=== PATIENT | female | born 1930 | race Caucasian/White ===

== ENCOUNTER 2018-10-03 14:32 | Inpatient (IN) | payer MEDICARE, OTHER ==
[~2018-10-03] VITALS: Ht 121.9 cm; Wt 46.0 kg
[~2018-10-03 14:32] MED LIST: ACET325T33 PO; HYDR-4011 PO
[2018-10-03 14:34] VITALS: Ht 121.9 cm; Wt 46.0 kg
[2018-10-03] MEDS ORDERED: IOHEXOL 100 ML ONE (16:32)
[2018-10-03] MEDS ORDERED: SOD CHLORIDE 0.9% 100 ML ONE (16:32)
[2018-10-03] MEDS ORDERED: IOHEXOL 350MG/ML 50 ML BTL ONE (16:35)
[2018-10-03] MEDS ORDERED: ONDANSETRON 4 MG INJ IV PRN ×2 (20:30→22:30)
[2018-10-03] MEDS ORDERED: ACETAMINOPHEN 325 MG TAB PO PRN (20:30)
--- NOTE | 2018-10-03 21:02 | ERD ---
ER Documentation Chief Complaint Chief Complaint ANGIOGRAM ON WEDNESDAY WITH ABDOMINAL BRUISING TODAY HPI This is an 88-year-old female with a past medical history of significant peripheral vascular disease with a necrotic ulcer of the right lower extremity secondary to occlusion status post revascularization with angioplasty recently who is now presenting for significant bruising to the abdominal wall and anterior upper thighs. According to the patient's vascular surgeon, Dr. Butcher, the patient was given heparin during the procedure. The patient does not endorse any significant tenderness, but the bruising has been expanding over the last several days, which was concerning to her and the family. She does not endorse any alleviating or exacerbating factors. The patient denies feeling sick recently. The patient denies fever or chills. The patient has had no headache or vision changes. The patient does not endorse neck or back pain. The patient denies lightheadedness or dizziness. The patient has had no chest pain or trouble breathing. The patient denies nausea or vomiting. The patient denies abdominal pain. The patient denies changes to bowel movements or urination. The patient has had no focal deficits. The patient has had no weakness or numbness or tingling to the face or extremities. ROS All systems reviewed and are negative except as per history of present illness. Medications Home Meds No Active Prescriptions or Reported Meds Allergies Allergies: Coded Allergies: No Known Allergy (Unverified , 10/03/18) PMhx/Soc History of Surgery: Yes (angiogram 09/2018) Anesthesia Reaction: No Hx Neurological Disorder: No Hx Respiratory Disorders: No Hx Cardiac Disorders: Yes (HTN) Hx Psychiatric Problems: No Hx Miscellaneous Medical Probl: Yes (RLE clot w compromised circulation; wound present) Hx Alcohol Use: No Hx Substance Use: No Hx Tobacco Use: No Smoking Status: Never smoker FmHx Family History: No diabetes Physical Exam Vitals Vital Signs Date Temp Pulse Resp B/P (MAP) Pulse Ox O2 O2 Flow FiO2 Time Delivery Rate 10/03/18 75 24 109/57 100 Room Air 18:28 (74) 10/03/18 99.2 81 18 118/58 94 14:34 (78) Physical Exam Const: No apparent distress, well-developed, well-nourished Head: Normocephalic, Atraumatic Eyes: Normal Conjunctiva. Extraocular movements intact. Pupils equal, round and reactive to light ENT: Normal External Ears, Nose and Mouth. Neck: Full range of motion. No meningismus. Resp: Clear to auscultation bilaterally, No wheezes, rales or rhonchi Cardio: Regular rate and rhythm. No murmurs, rubs or gallops Abd: Soft, non distended. Mild tenderness to the abdominal wall. Normal bowel sounds Skin: Significant bruising to the anterior abdominal wall extending down into the anterior thighs. Back: No midline tenderness. No CVA tenderness Ext: No cyanosis, or edema Neur: Awake and alert, oriented 4. Cranial nerves intact. No facial droop. Normal strength, sensation and coordination. Psych: Normal Mood and Affect Result Diagram: 10/03/18 1518 10/03/18 1518 Results 24 hrs Laboratory Tests Test 10/03/18 15:18 10/03/18 15:34 White Blood Count 6.8 10^3/ul Red Blood Count 2.83 10^6/ul Hemoglobin 7.7 g/dl Hematocrit 25.2 % Mean Corpuscular Volume 89.0 fl Mean Corpuscular Hemoglobin 27.2 pg Mean Corpuscular Hemoglobin Concent 30.6 g/dl Red Cell Distribution Width 15.4 % Platelet Count 308 10^3/UL Mean Platelet Volume 9.4 fl Immature Granulocytes % 0.600 % Neutrophils % 58.3 % Lymphocytes % 31.0 % Monocytes % 8.0 % Eosinophils % 1.5 % Basophils % 0.6 % Nucleated Red Blood Cells % 0.0 /100WBC Immature Granulocytes # 0.040 10^3/ul Neutrophils # 4.0 10^3/ul Lymphocytes # 2.1 10^3/ul Monocytes # 0.5 10^3/ul Eosinophils # 0.1 10^3/ul Basophils # 0.0 10^3/ul Nucleated Red Blood Cells # 0.0 10^3/ul Prothrombin Time 12.4 Sec Prothrombin Time Ratio 1.0 INR International Normalized Ratio 0.91 Activated Partial Thromboplast Time 24.4 Sec Sodium Level 140 mmol/L Potassium Level 4.1 mmol/L Chloride Level 104 mmol/L Carbon Dioxide Level 30 mmol/L Anion Gap 6 Blood Urea Nitrogen 17 mg/dl Creatinine 0.72 mg/dl Est Glomerular Filtrat Rate mL/min mL/min Glucose Level 105 mg/dl Calcium Level 9.2 mg/dl Total Bilirubin 0.5 mg/dl Direct Bilirubin 0.00 mg/dl Indirect Bilirubin 0.5 mg/dl Aspartate Amino Transf (AST/SGOT) 24 IU/L Alanine Aminotransferase (ALT/SGPT) 14 IU/L Alkaline Phosphatase 51 IU/L Total Protein 6.8 g/dl Albumin 3.4 g/dl Globulin 3.40 g/dl Albumin/Globulin Ratio 1.00 Bedside Urine pH (LAB) 7.0 Bedside Urine Protein (LAB) Negative Bedside Urine Glucose (UA) Negative Bedside Urine Ketones (LAB) Negative Bedside Urine Blood Negative Bedside Urine Nitrite (LAB) Negative Bedside Urine Leukocyte Esterase (L Negative Current Medications Medications Dose Sig/Tammy Start Time Status Last (Trade) Ordered Route PRN Stop Time Admin Dose Reason Admin Sodium 100 ml @ ud STK-MED 10/03/18 DC Chloride ONCE .ROUTE 16:32 10/03/18 16:33 Iohexol 100 ml @ ud STK-MED 10/03/18 DC ONCE .ROUTE 16:32 10/03/18 16:33 Iohexol 50 ml STK-MED 10/03/18 DC (Omnipaque ONCE .ROUTE 16:35 350mg/ ml) 10/03/18 16:36 Procedures/MDM MDM The patient's presentation warrants further investigation. Previous medical records, if available, were reviewed. LABS The patient's laboratory testing was obtained and reviewed. No emergent treatment was required unless described below. CBC: Normocytic anemia requiring reassessment. Emergent transfusion not req uired, but type and screen sent off. No E/o systemic infection or thrombocytopenia Chemistry: No E/o severe acidosis or alkalosis or renal failure or liver disease or diabetic ketoacidosis PT/INR: No E/o significant coagulopathy Urine: No E/o acute infection or hematuria EKG EKG read by me: Rate/Rhythm: Regular rate and rhythm at a rate of 81 bpm Intervals: Normal [place]: Left shifted Impression: Diffuse T wave flattening without evidence of acute ischemia or arrhythmia IMAGING Imaging and Radiology interpretation reviewed. CTA abdomen pelvis with runoff FINDINGS: AORTA AND BRANCHES: Abdominal aorta: Atherosclerosis. Negative for aneurysm. Negative for significant narrowing. Celiac [place]: Patent. No significant narrowing. Conventional hepatic arterial anatomy. There is vascular calcification of the splenic artery. SMA: Patent. No significant narrowing. There is scattered calcified atherosclerotic plaque with mild stenosis. RANDELL: Patent. No significant narrowing. Renal arteries: Single right and single left renal arteries. Patent with no significant narrowing. There is mild atherosclerotic plaque at the origin of the right renal artery without significant narrowing. ILIAC ARTERIES AND LOWER EXTREMITIES: There is vascular calcification and tortuosity of bilateral common, external and iliac arteries. Right iliac arteries: Right common and external iliac arteries: Patent. No significant narrowing. Right internal iliac artery: Patent without aneurysm. Left iliac arteries: Left common and external iliac arteries: Patent. No significant narrowing. Left internal iliac artery: Patent without aneurysm. Right lower extremity: There is diffuse vascular calcification of the major arteries of the right lower extremity and also of the calf arteries. Distal calf, ankle and foot are excluded from the field of view. Right common femoral artery: Patent. No significant narrowing. Right profunda femoris artery: Patent. No significant narrowing. Right superficial femoral artery: Patent. No significant narrowing. There is a small hematoma along the anterior wall of the proximal superficial femoral artery measuring 0.7 cm without active contrast extravasation and without a pseudoaneurysm (4/569). There is mild stenosis of the distal SFA in the adductor canal due to atherosclerosis. Right popliteal artery: Patent. No significant narrowing. Right anterior tibial artery: There is focal severe stenosis in the proximal anterior tibial artery shortly beyond its origin versus a short segment occlusion with reconstitution of flow distally. There are in tandem moderate and severe stenoses of the anterior tibial artery in the midcalf. Right tibioperoneal trunk: Patent. No significant narrowing. Right posterior tibial artery: Occluded. Right peroneal artery: Patent. No significant narrowing to the level of the mid calf. Left lower extremity: There is diffuse vascular calcification of the major arteries of the left lower extremity and also of the calf arteries. Distal calf, ankle and foot are excluded from the field of view. Left common femoral artery: Patent. No significant narrowing. There is a small hematoma along the anterior wall of the common femoral artery that measures 0.7 cm without pseudoaneurysm and without active contrast extravasation (4/553).. Left profunda femoris artery: Patent. No significant narrowing. Left superficial femoral artery: Patent. No significant narrowing. Left popliteal artery: Patent. No significant narrowing. Left anterior tibial artery: Patent with atherosclerosis with severe in tandem stenoses. Left tibioperoneal trunk: Patent with atherosclerosis with severe in tandem stenoses. Left posterior tibial artery: Patent with atherosclerosis with mild in tandem stenoses. Left peroneal artery: Patent with atherosclerosis with severe in tandem stenoses. LUNG BASES, ABDOMEN AND PELVIS: Evaluation of solid visceral organs and veins is limited on arterial phase imaging of the abdomen and pelvis. Lung Bases: Multichamber cardiomegaly. Liver: No significant abnormality. Gallbladder: 1.8 cm gallstone layers dependently in the gallbladder. Gallbladder is moderately distended. Negative for significant gallbladder wall thickening. Evaluation is limited due to motion artifact. Biliary tree: No intrahepatic or extrahepatic biliary duct dilatation. Spleen: No significant abnormality. Pancreas: No significant abnormality. Adrenal glands: No significant abnormality. Kidneys and ureters: Right kidney is small with multifocal parenchymal scarring. Left kidney is normal size. There are bilateral renal parenchymal cysts. Negative for hydronephrosis. Vasculature: Patency of IVC and iliac veins cannot be evaluated due to the timing of contrast bolus. Lymph nodes: No lymphadenopathy. Gastrointestinal tract: Larry colonic diverticulosis is severe in the sigmoid colon without diverticulitis. Bowel loops are decompressed and otherwise appear normal. Appendix: Normal. Bladder: No significant abnormality. Pelvic organs: Uterus and adnexa are unremarkable for age. Retroperitoneum: No obvious abnormality. Peritoneal cavity: Small volume low attenuation free pelvic fluid. Abdominal wall: There is a 3.2 x 12.5 cm hematoma in the left lower quadrant abdominal wall that involves the subcutaneous fat and the external oblique muscle that contains a hematocrit level. Negative for active contrast extr avasation. The left inferior epigastric and circumflex iliac arteries are patent. There is a fat-containing right lumbar hernia between the right quadratus lumborum and oblique musculature that measures 4.3 x 6.5 cm (4/233). There is a smaller fat containing left lumbar hernia that measures 2.6 cm (4/262). There is a small fat containing umbilical hernia. BONES AND NON-VASCULAR LOWER EXTREMITY: Right lower extremity: There is a defect in the subcutaneous fat over the medial aspect of the mid tibia. There are also varicose veins in the right lower extremity. Patency of the veins cannot be evaluated due to the phase of contrast injection. There is a suspected old healed fracture deformity of the right femoral neck and there is moderate osteoarthritis of the right hip. There is osteoarthritis of the knee. Left lower extremity soft tissues: Unremarkable where visualized. The lateral and posterior soft tissues are excluded from the field of view. There is osteoarthritis of the knee. Imaged spine and pelvis: Osteopenia. There is chronic height loss of several vertebra. There are mild degenerative changes in the spine. IMPRESSION: 1. 3.2 x 12.5 cm hematoma in the left lower quadrant abdominal wall without active contrast extravasation. 2. Small perivascular hematomas overlying the proximal right superficial femoral artery and the left common femoral artery without active contrast extravasation and without pseudoaneurysm are likely from recent vascular access. Negative for luminal narrowing. 3. Extensive atherosclerosis of the aorta, branch vessels and lower extremity arteries including the calf arteries. Aorta and branch vessels are patent without significant narrowing. Negative for aneurysm. 4. Right lower extremity: Negative for significant stenosis of the major arter ies of the right lower extremity from the common iliac artery to the popliteal artery. The dominant runoff vessel to the mid calf is the peroneal artery. Distal calf, ankle and foot are excluded from the field of view. 5. Left lower extremity: Negative for significant stenosis of the major arteries of the left lower extremity from the common iliac artery to the popliteal artery. The dominant runoff vessel to the mid calf is the posterior tibial artery. Distal calf, ankle and foot are excluded from the field of view. 6. Small scarred right kidney. Left kidney is normal size. Negative for hydro nephrosis. 7. Cholelithiasis. Gallbladder is moderately distended without definite evidence of acute cholecystitis. Evaluation is limited due to motion artifact. 8. Generalized edema with body wall edema and small volume low attenuation free pelvic fluid. 9. Right greater than left bilateral fat containing lumbar hernias and fat containing umbilical hernia. 10. Soft tissue ulcer in the right lower extremity over the mid tibia without evidence of osteomyelitis where imaged. There are adjacent varicose veins and the patency of the veins cannot be evaluated due to the phase of contrast injection. Electronically viewed and signed by Nayeli Geronimo Physician on 10/03/2018 19:00 TREATMENT/DISPOSITION The patient presents for significant abdominal wall and thigh bruising, concerning for a postoperative bleed since her vascular surgery and angioplasty. The patient was given heparin at the time, which could have caused the bleeding. The CT scan was completed that does not reveal any active extravasation, which is reassuring. The patient does not have evidence of symptomatic anemia at this time. However, the patient's hemoglobin is quite low at 7.7. Given the patient's recent bleeding, I do feel that she requires admission for reassessment of her anemia serially. I did speak with the patient's vascular surgeon who referred me to our on-call vascular surgeon, Dr. Chicas. I spoke with Dr. Jairo Serrano who is happy to be consulted on the case and will evaluate the patient in the hospital. ADMISSION At this time, I feel that the patient requires admission for further evaluation and management. The patient will be admitted to panel in accordance with the patient's insurance. The patient was accepted by Dr. Lemos at 7:15 PM on October 03, 2018. Dr. Jairo Serrano, the on-call vascular surgeon, was consulted on the case and will evaluate the patient in the hospital. DISCLAIMER Inadvertent spelling and grammatical errors are likely due to EHR/dictation software use and do not reflect on the overall quality of patient care. Note that the electronic time recorded on this note does not necessarily reflect the actual time of the patient encounter. Departure Diagnosis: Primary Impression: Normocytic anemia due to blood loss Additional Impressions: Postprocedural hematoma of abdominal wall Postoperative complication Surgical complication system/body Area: circulatory system Surgical complication type: hematoma Procedure type: other circulatory Qualified Codes: I97.638 - Postprocedural hematoma of a circulatory system organ or structure following other circulatory system procedure History of vascular surgery History of angioplasty of peripheral vessel Condition: DC [place] MD Oct 03, 2018 21:01
[2018-10-03 22:00] VITALS: BP 117/88; PULSE 18; RESP 20
[2018-10-03] MEDS ORDERED: NACL 0.9% 3 ML SYG IV SCH (22:30)
[2018-10-03] MEDS ORDERED: ALBUTEROL/IPRATROPIUM (NEB) 3 ML AMP HHN PRN (22:30)
[2018-10-03] MEDS: DEXTROSE 5%-0.45% NACL 1,000 ML IV SCH (23:02)
[2018-10-04 00:13] VITALS: BP 133/97; PULSE 80; RESP 18
[2018-10-04] MEDS: morphine 2 MG INJ IV PRN ×3 (00:23→21:36)
[2018-10-04 04:43] VITALS: BP 128/71; PULSE 78; RESP 20
[2018-10-04] MEDS: PANTOPRAZOLE 40 MG INJ IV SCH (06:13)
--- NOTE | 2018-10-04 07:17 | HP ---
Date/Time of Note Date/Time of Note DATE: 10/04/18 TIME: 07:11 Assessment/Plan VTE Prophylaxis SCD applied (from Nsg): Yes Pharmacological prophylaxis: NA/contraindicated Pharm contraindication: bleeding Lines/Catheters IV Catheter Type (from Nrsg): Peripheral IV Assessment/Plan Assessment/Plan 1. Abdominal wall hematoma: Patient status post angioplasty with revascularization recently. She was also given heparin. -Monitor closely -Avoid antiplatelets and obviously blood thinners -Transfuse PRBCs based on repeat H&H level -May repeat CT prior to discharge 2. Anemia: Secondary to blood loss -See #1 3. Right lower extremity ulcer -Status post revascularization recently. See #1 -Wound care consult -Antibiotic 4. Hypertension: BP within acceptable range Result Diagram: 10/04/185710/04/188 Results 24hrs Laboratory Tests Test 10/03/18 15:18 10/03/18 15:34 10/04/18 00:58 10/04/18 05:31 White Blood Count 6.8 6.5 Red Blood Count 2.83 L 2.61 L Hemoglobin 7.7 L 7.2 L Hematocrit 25.2 L 23.3 L Mean Corpuscular 89.0 89.3 Volume Mean Corpuscular 27.2 L 27.6 L Hemoglobin Mean Corpuscular 30.6 L 30.9 L Hemoglobin Concent Red Cell 15.4 H 15.5 H Distribution Width Platelet Count 308 282 Mean Platelet Volume 9.4 9.6 Immature 0.600 H 0.600 H Granulocytes % Neutrophils % 58.3 56.0 Lymphocytes % 31.0 32.7 Monocytes % 8.0 8.6 Eosinophils % 1.5 1.5 Basophils % 0.6 0.6 Nucleated Red Blood 0.0 0.0 Cells % Immature 0.040 H 0.040 H Granulocytes # Neutrophils # 4.0 3.7 Lymphocytes # 2.1 2.1 Monocytes # 0.5 0.6 Eosinophils # 0.1 0.1 Basophils # 0.0 0.0 Nucleated Red Blood 0.0 0.0 Cells # Prothrombin Time 12.4 Prothrombin Time 1.0 Ratio INR International 0.91 Normalized Ratio Activated 24.4 Partial Thromboplast Time Sodium Level 140 139 Potassium Level 4.1 4.1 Chloride Level 104 104 Carbon Dioxide Level 30 28 Anion Gap 6 7 Blood Urea Nitrogen 17 15 Creatinine 0.72 0.65 Est Glomerular Filtrat Rate mL/min Glucose Level 105 131 Calcium Level 9.2 8.9 Total Bilirubin 0.5 0.6 Direct Bilirubin 0.00 0.00 Indirect Bilirubin 0.5 0.6 Aspartate Amino 24 22 Transf (AST/SGOT) Alanine 14 16 Aminotransferase (AL T/SGPT) Alkaline Phosphatase 51 44 Total Protein 6.8 6.1 Albumin 3.4 3.1 L Globulin 3.40 H 3.00 Albumin/Globulin 1.00 1.03 Ratio Bedside Urine pH 7.0 (LAB) Bedside Urine Negative Protein (LAB) Bedside Urine Negative Glucose (UA) Bedside Urine Negative Ketones (LAB) Bedside Urine Blood Negative Bedside Urine Negative Nitrite (LAB) Bedside Urine Negative Leukocyte Esterase (L Magnesium Level 2.0 1.9 HPI/ROS Admit Date/Time Admit Date/Time Oct 03, 2018 at 20:17 Hx of Present Illness Patient is an 88-year-old female with a history of hypertension, PVD, right lower extremity ulcer who presented to ER complaining of abdominal ecchymosis. Patient recently underwent angioplasty with revascularization. According to the daughter who was at the bedside, for the past 3 days the ecchymosis has been progressively getting worse. No abdominal pain. When presented to the ER, vitals were stable. Hemoglobin however was found to be 7.7. CT abdomen/pelvis in the ER shows the following 1. 3.2 x 12.5 cm hematoma in the left lower quadrant abdominal wall without active contrast extravasation. 2. Small perivascular hematomas overlying the proximal right superficial femoral artery and the left common femoral artery without active contrast extravasation and without pseudoaneurysm are likely from recent vascular access. Negative for luminal narrowing. 3. Extensive atherosclerosis of the aorta, branch vessels and lower extremity arteries including the calf arteries. Aorta and branch vessels are patent without significant narrowing. Negative for aneurysm. 4. Right lower extremity: Negative for significant stenosis of the major arteries of the right lower extremity from the common iliac artery to the popliteal artery. The dominant runoff vessel to the mid calf is the peroneal artery. Distal calf, ankle and foot are excluded from the field of view. 5. Left lower extremity: Negative for significant stenosis of the major arteries of the left lower extremity from the common iliac artery to the popliteal artery. The dominant runoff vessel to the mid calf is the posterior tibial artery. Distal calf, ankle and foot are excluded from the field of view. 6. Small scarred right kidney. Left kidney is normal size. Negative for hydronephrosis. 7. Cholelithiasis. Gallbladder is moderately distended without definite evidence of acute cholecystitis. Evaluation is limited due to motion artifact. 8. Generalized edema with body wall edema and small volume low attenuation free pelvic fluid. 9. Right greater than left bilateral fat containing lumbar hernias and fat containing umbilical hernia. 10. Soft tissue ulcer in the right lower extremity over the mid tibia without evidence of osteomyelitis where imaged. There are adjacent varicose veins and the patency of the veins cannot be evaluated due to the phase of contrast injection. PMH/Family/Social Past Medical History Medical History: other (see hpi) Medications Current Medications Acetaminophen (Tylenol Tab) 650 mg ER BRIDGE PRN PO .MILD PAIN 1-3 OR TEMP; Start 10/03/18 at 20:30; Stop 10/04/18 at 20:29 Dextrose/Sodium Chloride 1,000 ml @ 75 mls/hr [id number] IV Last administered on 10/03/18at 23:02; Admin Dose 75 MLS/HR; Start 10/03/18 at 22:05 IV Flush (NS 3 ml) 3 ml PER PROTOCOL IV ; Start 10/03/18 at 22:30 Ondansetron HCl (Zofran Inj) 4 mg Q6H PRN IV NAUSEA/VOMITING; Start 10/03/18 at 22:30 Morphine Sulfate (morphine) 2 mg Q4H PRN IV .PAIN 7-10 Last administered on 10/04/18at 00:23; Admin Dose 2 MG; Start 10/03/18 at 22:30 Pantoprazole (Protonix Iv) 40 mg DAILY@06 IV Last administered on 10/04/18at 06:13; Admin Dose 40 MG; Start 10/04/18 at 06:00 Albuterol/ Ipratropium (Duoneb) 3 ml Q2H RESP THERAPY PRN HHN SHORTNESS OF BREATH; Start 10/03/18 at 22:30 Coded Allergies: No Known Allergy (Unverified , 10/03/18) Past Surgical History Past Surgical Hx: other (see hpi) Family History Significant Family History: no pertinent family hx Social History Alcohol Use: other Smoking Status: Unknown if ever smoked Drug Use: other Exam/Review of Systems Vital Signs Vitals Vital Signs Date Temp Pulse Resp B/P (MAP) Pulse Ox O2 O2 Flow FiO2 Time Delivery Rate 10/04/18 98.1 78 20 128/71 100 04:43 (90) 10/03/18 Room Air 21:14 Intake and Output 10/03/18 10/03/18 10/04/18 1515:00 23:00 07:00 IntakeIntake Total 120 ml BalanceBalance 120 ml Exam Exam Constitutional: no acute distress Head: normocephalic, atraumatic Eyes: EOMI, PERRL Respiratory: clear to auscultation, normal air movement Cardiovascular: no skipped beat Gastrointestinal: soft, non-tender Extremities: edema MIKE RAZO MD Oct 04, 2018 07:17
[2018-10-04 07:50] VITALS: BP 130/63; PULSE 70; RESP 18
[2018-10-04] MEDS ORDERED: SOD CHLORIDE 0.9% 250 ML IV* ONE (10:46)
[2018-10-04] MEDS: TRIMETHOPRIM/SULFAMETHOX (DS) TAB PO SCH ×2 (10:55→20:32)
[2018-10-04] MEDS: DEXTROSE 5%-0.45% NACL 1,000 ML IV SCH (10:57)
--- NOTE | 2018-10-04 10:59 | PN ---
Date/Time of Note Date/Time of Note DATE: 10/04/18 TIME: 10:54 Assessment/Plan VTE Prophylaxis Risk score (from Ns)>0 risk: 5 SCD applied (from Ns): Yes Pharmacological prophylaxis: NA/contraindicated Pharm contraindication: bleeding Lines/Catheters IV [facility]ter [facility] (from [facility]): Peripheral IV Assessment/Plan Hospital Course S: Patient denies any upper or lower GI bleeding. Denies any significant abdominal pain. Waiting to be seen by vascular surgery team presently. O: VS- see below PE: Gen: Alert, sitting up in bed, daughter at bedside Head: Normocephalic, Atraumatic Eyes: Normal Conjunctiva. Extraocular movements intact. Pupils equal, round and reactive to light ENT: Normal External Ears, Nose and Mouth. Neck: Supple Resp: Clear to auscultation bilaterally, No wheezes, rales or rhonchi Cardio: Regular rate and rhythm. No murmurs, rubs or gallops Abd: Soft, non distended. Mild tenderness to the abdominal wall. Normal bowel sounds Skin: Significant bruising to the anterior abdominal wall extending down into the anterior thighs. Ext: No bilateral lower extremity edema Neuro: No focal deficits Assessment/Plan: 88-year-old female with a history of hypertension, PVD, right lower extremity ulcer who recently underwent angioplasty with revascularization who now presents to ER complaining of abdominal ecchymosis. 1. Abdominal wall hematoma: Patient status post angioplasty with revascularization recently, and looks like a few days ago September 30, 2018 at [facility]. Apparently at that time she was also given heparin. -Monitor closely for now -Avoid antiplatelets and obviously blood thinners -Given the hemoglobin of 7.2 today, will order for unit PRBC transfusion and follow-up recommendations from vascular surgeon who has been consulted -May also need to repeat CT prior to discharge 2. Anemia: Secondary to blood loss -See #1 3. Right lower extremity ulcer -Status post revascularization recently. See #1 -Wound care consult -follow-up the recommendations -For now continue antibiotic 4. Hypertension: BP within acceptable range -Monitor Result Diagram: 10/04/18 0058 10/04/18 0058 Results 24hrs Laboratory Tests Test 10/03/18 15:18 10/03/18 15:34 10/04/18 00:58 10/04/18 05:31 White Blood Count 6.8 6.5 Red Blood Count 2.83 L 2.61 L Hemoglobin 7.7 L 7.2 L Hematocrit 25.2 L 23.3 L Mean Corpuscular 89.0 89.3 Volume Mean Corpuscular 27.2 L 27.6 L Hemoglobin Mean Corpuscular 30.6 L 30.9 L Hemoglobin Concent Red Cell 15.4 H 15.5 H Distribution Width Platelet Count 308 282 Mean Platelet Volume 9.4 9.6 Immature 0.600 H 0.600 H Granulocytes % Neutrophils % 58.3 56.0 Lymphocytes % 31.0 32.7 Monocytes % 8.0 8.6 Eosinophils % 1.5 1.5 Basophils % 0.6 0.6 Nucleated Red Blood 0.0 0.0 Cells % Immature 0.040 H 0.040 H Granulocytes # Neutrophils # 4.0 3.7 Lymphocytes # 2.1 2.1 Monocytes # 0.5 0.6 Eosinophils # 0.1 0.1 Basophils # 0.0 0.0 Nucleated Red Blood 0.0 0.0 Cells # Prothrombin Time 12.4 Prothrombin Time 1.0 Ratio INR International 0.91 Normalized Ratio Activated 24.4 Partial Thromboplast Time Sodium Level 140 139 Potassium Level 4.1 4.1 Chloride Level 104 104 Carbon Dioxide Level 30 28 Anion Gap 6 7 Blood Urea Nitrogen 17 15 Creatinine 0.72 0.65 Est Glomerular Filtrat Rate mL/min Glucose Level 105 131 Calcium Level 9.2 8.9 Total Bilirubin 0.5 0.6 Direct Bilirubin 0.00 0.00 Indirect Bilirubin 0.5 0.6 Aspartate Amino 24 22 Transf (AST/SGOT) Alanine 14 16 Aminotransferase (AL T/SGPT) Alkaline Phosphatase 51 44 Total Protein 6.8 6.1 Albumin 3.4 3.1 L Globulin 3.40 H 3.00 Albumin/Globulin 1.00 1.03 Ratio Bedside Urine pH 7.0 (LAB) Bedside Urine Negative Protein (LAB) Bedside Urine Negative Glucose (UA) Bedside Urine Negative Ketones (LAB) Bedside Urine Blood Negative Bedside Urine Negative Nitrite (LAB) Bedside Urine Negative Leukocyte Esterase (L Magnesium Level 2.0 1.9 Exam/Review of Systems Exam Vitals Vital Signs Date Temp Pulse Resp B/P (MAP) Pulse Ox O2 O2 Flow FiO2 Time Delivery Rate 10/04/18 98.2 70 18 130/63 96 07:50 (85) 10/03/18 Room Air 21:14 Intake and Output 10/03/18 10/03/18 10/04/18 1515:00 23:00 07:00 IntakeIntake Total 120 ml 600 ml BalanceBalance 120 ml 600 ml Results Results 24hrs Laboratory Tests Test 10/03/18 15:18 10/03/18 15:34 10/04/18 00:58 10/04/18 05:31 White Blood Count 6.8 6.5 Red Blood Count 2.83 L 2.61 L Hemoglobin 7.7 L 7.2 L Hematocrit 25.2 L 23.3 L Mean Corpuscular 89.0 89.3 Volume Mean Corpuscular 27.2 L 27.6 L Hemoglobin Mean Corpuscular 30.6 L 30.9 L Hemoglobin Concent Red Cell 15.4 H 15.5 H Distribution Width Platelet Count 308 282 Mean Platelet Volume 9.4 9.6 Immature 0.600 H 0.600 H Granulocytes % Neutrophils % 58.3 56.0 Lymphocytes % 31.0 32.7 Monocytes % 8.0 8.6 Eosinophils % 1.5 1.5 Basophils % 0.6 0.6 Nucleated Red Blood 0.0 0.0 Cells % Immature 0.040 H 0.040 H Granulocytes # Neutrophils # 4.0 3.7 Lymphocytes # 2.1 2.1 Monocytes # 0.5 0.6 Eosinophils # 0.1 0.1 Basophils # 0.0 0.0 Nucleated Red Blood 0.0 0.0 Cells # Prothrombin Time 12.4 Prothrombin Time 1.0 Ratio INR International 0.91 Normalized Ratio Activated 24.4 Partial Thromboplast Time Sodium Level 140 139 Potassium Level 4.1 4.1 Chloride Level 104 104 Carbon Dioxide Level 30 28 Anion Gap 6 7 Blood Urea Nitrogen 17 15 Creatinine 0.72 0.65 Est Glomerular Filtrat Rate mL/min Glucose Level 105 131 Calcium Level 9.2 8.9 Total Bilirubin 0.5 0.6 Direct Bilirubin 0.00 0.00 Indirect Bilirubin 0.5 0.6 Aspartate Amino 24 22 Transf (AST/SGOT) Alanine 14 16 Aminotransferase (AL T/SGPT) Alkaline Phosphatase 51 44 Total Protein 6.8 6.1 Albumin 3.4 3.1 L Globulin 3.40 H 3.00 Albumin/Globulin 1.00 1.03 Ratio Bedside Urine pH 7.0 (LAB) Bedside Urine Negative Protein (LAB) Bedside Urine Negative Glucose (UA) Bedside Urine Negative Ketones (LAB) Bedside Urine Blood Negative Bedside Urine Negative Nitrite (LAB) Bedside Urine Negative Leukocyte Esterase (L Magnesium Level 2.0 1.9 Medications Medication Current Medications Dextrose/Sodium Chloride 1,000 ml @ 75 mls/hr [id number] IV Last administered on 10/03/18at 23:02; Admin Dose 75 MLS/HR; Start 10/03/18 at 22:05 IV Flush (NS 3 ml) 3 ml PER PROTOCOL IV ; Start 10/03/18 at 22:30 Ondansetron HCl (Zofran Inj) 4 mg Q6H PRN IV NAUSEA/VOMITING; Start 10/03/18 at 22:30 Morphine Sulfate (morphine) 2 mg Q4H PRN IV .PAIN 7-10 Last administered on 10/04/18at 00:23; Admin Dose 2 MG; Start 10/03/18 at 22:30 Pantoprazole (Protonix Iv) 40 mg DAILY@06 IV Last administered on 10/04/18at 06:13; Admin Dose 40 MG; Start 10/04/18 at 06:00 Albuterol/ Ipratropium (Duoneb) 3 ml Q2H RESP THERAPY PRN HHN SHORTNESS OF BREATH; Start 10/03/18 at 22:30 Trimethoprim/ Sulfamethoxazole (Bactrim (Ds)) 1 tab BID PO ; Start 10/04/18 at 10:30 DONNY LAY Oct 04, 2018 10:59
[2018-10-04 11:36] VITALS: BP 116/53; PULSE 82; RESP 17
--- NOTE | 2018-10-04 12:30 | CONS ---
Assessment/Plan Assessment/Plan Assessment/Plan (Daily) Status post lower extremity angiogram with angioplasty with small hematoma in the abdominal wall no signs of active bleeding CTA Abdominal wall angiogram: IMPRESSION: 1. 3.2 x 12.5 cm hematoma in the left lower quadrant abdominal wall without active contrast extravasation. 2. Small perivascular hematomas overlying the proximal right superficial femoral artery and the left common femoral artery without active contrast extravasation and without pseudoaneurysm are likely from recent vascular access. Negative for luminal narrowing. 3. Extensive atherosclerosis of the aorta, branch vessels and lower extremity arteries including the calf arteries. Aorta and branch vessels are patent witho ut significant narrowing. Negative for aneurysm. 4. Right lower extremity: Negative for significant stenosis of the major arteries of the right lower extremity from the common iliac artery to the p opliteal artery. The dominant runoff vessel to the mid calf is the peroneal artery. Distal calf, ankle and foot are excluded from the field of view. 5. Left lower extremity: Negative for significant stenosis of the major arteries of the left lower extremity from the common iliac artery to the pop liteal artery. The dominant runoff vessel to the mid calf is the posterior tibial artery. Distal calf, ankle and foot are excluded from the field of view. 6. Small scarred right kidney. Left kidney is normal size. Negative for hydronephrosis. 7. Cholelithiasis. Gallbladder is moderately distended without definite evidence of acute cholecystitis. Evaluation is limited due to motion artifact. 8. Generalized edema with body wall edema and small volume low attenuation free pelvic fluid. 9. Right greater than left bilateral fat containing lumbar hernias and fat containing umbilical hernia. 10. Soft tissue ulcer in the right lower extremity over the mid tibia without evidence of osteomyelitis where imaged. There are adjacent varicose veins and the patency of the veins cannot be evaluated due to the phase of contrast injection. Plan Will transfuse to treat the anemia monitor ecchymoses avoid anticoagulants Consultation Date/Type/Reason Admit Date/Time Oct 03, 2018 at 20:17 Date of Consultation: Oct 04, 2018 Type of Consult Abdominal wall hematoma Reason for Consultation Abdominal wall hematoma Date/Time of Note DATE: 10/04/18 TIME: 12:27 Hx of Present Illness This is a 88-year-old female who underwent a lower extremity angioplasty and atherectomy subsequently was found to have a hematoma in the abdominal wall was admitted was found to have a hemoglobin of 7 CAT scan with contrast was done which showed no evidence of any active extravasation patient is hemodynamically stable ecchymosis in the abdominal wall is improving Respiratory: no complaints Cardiovascular: no complaints Gastrointestinal: no complaints Genitourinary: no complaints Musculoskeletal: no complaints Skin: no complaints Neurologic: no complaints Past Medical History Home Meds No Active Prescriptions or Reported Meds Medications Current Medications Dextrose/Sodium Chloride 1,000 ml @ 75 mls/hr [id number] IV Last administered on 10/04/18at 10:57; Admin Dose 75 MLS/HR; Start 10/03/18 at 22:05 IV Flush (NS 3 ml) 3 ml PER PROTOCOL IV ; Start 10/03/18 at 22:30 Ondansetron HCl (Zofran Inj) 4 mg Q6H PRN IV NAUSEA/VOMITING; Start 10/03/18 at 22:30 Morphine Sulfate (morphine) 2 mg Q4H PRN IV .PAIN 7-10 Last administered on 10/04/18at 00:23; Admin Dose 2 MG; Start 10/03/18 at 22:30 Pantoprazole (Protonix Iv) 40 mg DAILY@06 IV Last administered on 10/04/18at 06:13; Admin Dose 40 MG; Start 10/04/18 at 06:00 Albuterol/ Ipratropium (Duoneb) 3 ml Q2H RESP THERAPY PRN HHN SHORTNESS OF BREATH; Start 10/03/18 at 22:30 Trimethoprim/ Sulfamethoxazole (Bactrim (Ds)) 1 tab BID PO Last administered on 10/04/18at 10:55; Admin Dose 1 TAB; Start 10/04/18 at 10:30 Allergies: Coded Allergies: No Known Allergy (Unverified , 10/03/18) Social History Smoking Status: Former smoker Exam/Review of Systems Exam Vitals Vital Signs Date Temp Pulse Resp B/P (MAP) Pulse Ox O2 O2 Flow FiO2 Time Delivery Rate 10/04/18 98.2 82 17 116/53 95 11:36 (74) 10/03/18 Room Air 21:14 Intake and Output 10/03/18 10/03/18 10/04/18 1515:00 23:00 07:00 IntakeIntake Total 120 ml 600 ml BalanceBalance 120 ml 600 ml Eyes: nl conjunctiva, EOMI, nl lids, nl sclera, PERRL ENMT: nl external ears & nose, nl lips & teeth, nl nasal mucosa & septum Neck: supple, non-tender Respiratory: clear to auscultation, normal air movement Cardiovascular: regular rate and rhythm, nl pulses Gastrointestinal: soft, nl liver, spleen, non-tender Additional Comments Ecchymosis in the abdominal wall noted no evidence of a pseudoaneurysm on clinical exam Results Result Diagram: 10/04/18 0058 10/04/18 0058 Results 24hrs Laboratory Tests Test 10/03/18 15:18 10/03/18 15:34 10/04/18 00:58 10/04/18 05:31 White Blood Count 6.8 6.5 Red Blood Count 2.83 L 2.61 L Hemoglobin 7.7 L 7.2 L Hematocrit 25.2 L 23.3 L Mean Corpuscular 89.0 89.3 Volume Mean Corpuscular 27.2 L 27.6 L Hemoglobin Mean Corpuscular 30.6 L 30.9 L Hemoglobin Concent Red Cell 15.4 H 15.5 H Distribution Width Platelet Count 308 282 Mean Platelet Volume 9.4 9.6 Immature 0.600 H 0.600 H Granulocytes % Neutrophils % 58.3 56.0 Lymphocytes % 31.0 32.7 Monocytes % 8.0 8.6 Eosinophils % 1.5 1.5 Basophils % 0.6 0.6 Nucleated Red Blood 0.0 0.0 Cells % Immature 0.040 H 0.040 H Granulocytes # Neutrophils # 4.0 3.7 Lymphocytes # 2.1 2.1 Monocytes # 0.5 0.6 Eosinophils # 0.1 0.1 Basophils # 0.0 0.0 Nucleated Red Blood 0.0 0.0 Cells # Prothrombin Time 12.4 Prothrombin Time 1.0 Ratio INR International 0.91 Normalized Ratio Activated 24.4 Partial Thromboplast Time Sodium Level 140 139 Potassium Level 4.1 4.1 Chloride Level 104 104 Carbon Dioxide Level 30 28 Anion Gap 6 7 Blood Urea Nitrogen 17 15 Creatinine 0.72 0.65 Est Glomerular Filtrat Rate mL/min Glucose Level 105 131 Calcium Level 9.2 8.9 Total Bilirubin 0.5 0.6 Direct Bilirubin 0.00 0.00 Indirect Bilirubin 0.5 0.6 Aspartate Amino 24 22 Transf (AST/SGOT) Alanine 14 16 Aminotransferase (AL T/SGPT) Alkaline Phosphatase 51 44 Total Protein 6.8 6.1 Albumin 3.4 3.1 L Globulin 3.40 H 3.00 Albumin/Globulin 1.00 1.03 Ratio Bedside Urine pH 7.0 (LAB) Bedside Urine Negative Protein (LAB) Bedside Urine Negative Glucose (UA) Bedside Urine Negative Ketones (LAB) Bedside Urine Blood Negative Bedside Urine Negative Nitrite (LAB) Bedside Urine Negative Leukocyte Esterase (L Magnesium Level 2.0 1.9 Medications Medication Current Medications Dextrose/Sodium Chloride 1,000 ml @ 75 mls/hr [id number] IV Last administered on 10/04/18at 10:57; Admin Dose 75 MLS/HR; Start 10/03/18 at 22:05 IV Flush (NS 3 ml) 3 ml PER PROTOCOL IV ; Start 10/03/18 at 22:30 Ondansetron HCl (Zofran Inj) 4 mg Q6H PRN IV NAUSEA/VOMITING; Start 10/03/18 at 22:30 Morphine Sulfate (morphine) 2 mg Q4H PRN IV .PAIN 7-10 Last administered on 10/04/18at 00:23; Admin Dose 2 MG; Start 10/03/18 at 22:30 Pantoprazole (Protonix Iv) 40 mg DAILY@06 IV Last administered on 10/04/18at 06:13; Admin Dose 40 MG; Start 10/04/18 at 06:00 Albuterol/ Ipratropium (Duoneb) 3 ml Q2H RESP THERAPY PRN HHN SHORTNESS OF BREATH; Start 10/03/18 at 22:30 Trimethoprim/ Sulfamethoxazole (Bactrim (Ds)) 1 tab BID PO Last administered on 10/04/18at 10:55; Admin Dose 1 TAB; Start 10/04/18 at 10:30 KAREN COYEL MD Oct 04, 2018 12:29
[2018-10-04 15:28] VITALS: BP 116/62; PULSE 76; RESP 18
[2018-10-04 19:08] VITALS: BP 120/60; PULSE 76; RESP 19
[2018-10-05] VITALS: BP 110/57; PULSE 60; RESP 19
[2018-10-05] MEDS: DEXTROSE 5%-0.45% NACL 1,000 ML IV SCH ×2 (01:33→15:18)
[2018-10-05 03:48] VITALS: BP 112/57; PULSE 77; RESP 19
[2018-10-05] MEDS: PANTOPRAZOLE 40 MG INJ IV SCH (05:44)
[2018-10-05 07:24] VITALS: BP 115/57; PULSE 75; RESP 18
[2018-10-05] MEDS: TRIMETHOPRIM/SULFAMETHOX (DS) TAB PO SCH (09:47)
[2018-10-05 11:15] VITALS: BP 128/60; PULSE 71; RESP 18
--- NOTE | 2018-10-05 11:41 | PN ---
Date/Time of Note Date/Time of Note DATE: 10/05/18 TIME: 11:39 Assessment/Plan VTE Prophylaxis Risk score (from Ns)>0 risk: 4 SCD applied (from Ns): Yes Pharmacological prophylaxis: NA/contraindicated Pharm contraindication: bleeding Lines/Catheters [facility]from [facility] Peripheral IV Assessment/Plan Hospital Course S: Patient seen by vascular surgery team yesterday, no signs of any present bleeding. Received blood transfusion yesterday. Tolerating diet. O: VS- see below PE: Gen: Alert, sitting up in bed, daughter at bedside Head: Normocephalic, Atraumatic Eyes: Normal Conjunctiva. Extraocular movements intact. Pupils equal, round and reactive to light ENT: Normal External Ears, Nose and Mouth. Neck: Supple Resp: Clear to auscultation bilaterally, No wheezes, rales or rhonchi Cardio: Regular rate and rhythm. No murmurs, rubs or gallops Abd: Soft, non distended. Mild tenderness to the abdominal wall. Normal bowel sounds Skin: Significant bruising to the anterior abdominal wall extending down into the anterior thighs. Ext: No bilateral lower extremity edema Neuro: No focal deficits Assessment/Plan: 88-year-old female with a history of hypertension, PVD, right lower extremity ulcer who recently underwent angioplasty with revascularization who now presents to ER complaining of abdominal ecchymosis. 1. Abdominal wall hematoma: Patient status post angioplasty with revascularization recently, and looks like a few days ago September 30, 2018 at [facility]. Apparently at that time she was also given heparin. -Monitor closely for now -Avoid antiplatelets and obviously blood thinners -Follow-up vascular surgery recommendations and will recheck hemoglobin later today to make sure there is no drop in the levels 2. Anemia: Secondary to blood loss, again status post blood transfusion yesterday with improved hemoglobin this morning -See #1 3. Right lower extremity ulcer -Status post revascularization recently. See #1 -Wound care consult -follow-up the recommendations -For now continue antibiotic 4. Hypertension: BP within acceptable range -Monitor Result Diagram: 10/05/18 0544 10/05/18 0544 Results 24hrs Laboratory Tests Test 10/04/18 18:12 10/05/18 05:44 Hemoglobin 8.3 L 8.8 L Hematocrit 26.5 L 28.3 L White Blood Count 5.5 Red Blood Count 3.23 #L Mean Corpuscular Volume 87.6 Mean Corpuscular Hemoglobin 27.2 L Mean Corpuscular Hemoglobin Concent 31.1 L Red Cell Distribution Width 16.1 H Platelet Count 281 Mean Platelet Volume 9.3 Immature Granulocytes % 0.400 Neutrophils % 53.4 Lymphocytes % 33.3 Monocytes % 8.4 Eosinophils % 3.8 Basophils % 0.7 Nucleated Red Blood Cells % 0.0 Immature Granulocytes # 0.020 Neutrophils # 2.9 Lymphocytes # 1.8 Monocytes # 0.5 Eosinophils # 0.2 Basophils # 0.0 Nucleated Red Blood Cells # 0.0 Sodium Level 139 Potassium Level 4.1 Chloride Level 106 Carbon Dioxide Level 27 Anion Gap 6 Blood Urea Nitrogen 9 Creatinine 0.70 Est Glomerular Filtrat Rate mL/min Glucose Level 109 Calcium Level 8.4 Phosphorus Level 4.0 Magnesium Level 1.9 Exam/Review of Systems Exam Vitals Vital Signs Date Temp Pulse Resp B/P (MAP) Pulse Ox O2 O2 Flow FiO2 Time Delivery Rate 10/05/18 98.1 71 18 128/60 93 Room Air 11:15 (82) Intake and Output 10/04/18 10/04/18 10/05/18 1515:00 23:00 07:00 IntakeIntake Total 200 ml 440 ml 400 ml BalanceBalance 200 ml 440 ml 400 ml Results Results 24hrs Laboratory Tests Test 10/04/18 18:12 10/05/18 05:44 Hemoglobin 8.3 L 8.8 L Hematocrit 26.5 L 28.3 L White Blood Count 5.5 Red Blood Count 3.23 #L Mean Corpuscular Volume 87.6 Mean Corpuscular Hemoglobin 27.2 L Mean Corpuscular Hemoglobin Concent 31.1 L Red Cell Distribution Width 16.1 H Platelet Count 281 Mean Platelet Volume 9.3 Immature Granulocytes % 0.400 Neutrophils % 53.4 Lymphocytes % 33.3 Monocytes % 8.4 Eosinophils % 3.8 Basophils % 0.7 Nucleated Red Blood Cells % 0.0 Immature Granulocytes # 0.020 Neutrophils # 2.9 Lymphocytes # 1.8 Monocytes # 0.5 Eosinophils # 0.2 Basophils # 0.0 Nucleated Red Blood Cells # 0.0 Sodium Level 139 Potassium Level 4.1 Chloride Level 106 Carbon Dioxide Level 27 Anion Gap 6 Blood Urea Nitrogen 9 Creatinine 0.70 Est Glomerular Filtrat Rate mL/min Glucose Level 109 Calcium Level 8.4 Phosphorus Level 4.0 Magnesium Level 1.9 Medications Medication Current Medications Dextrose/Sodium Chloride 1,000 ml @ 75 mls/hr [id number] IV Last administered on 10/05/18at 01:33; Admin Dose 75 MLS/HR; Start 10/03/18 at 22:05 IV Flush (NS 3 ml) 3 ml PER PROTOCOL IV ; Start 10/03/18 at 22:30 Ondansetron HCl (Zofran Inj) 4 mg Q6H PRN IV NAUSEA/VOMITING; Start 10/03/18 at 22:30 Morphine Sulfate (morphine) 2 mg Q4H PRN IV .PAIN 7-10 Last administered on 10/04/18at 21:36; Admin Dose 2 MG; Start 10/03/18 at 22:30 Pantoprazole (Protonix Iv) 40 mg DAILY@06 IV Last administered on 10/05/18at 05:44; Admin Dose 40 MG; Start 10/04/18 at 06:00 Albuterol/ Ipratropium (Duoneb) 3 ml Q2H RESP THERAPY PRN HHN SHORTNESS OF BREATH; Start 10/03/18 at 22:30 Trimethoprim/ Sulfamethoxazole (Bactrim (Ds)) 1 tab BID PO Last administered on 10/05/18at 09:47; Admin Dose 1 TAB; Start 10/04/18 at 10:30 DONNY LAY Oct 05, 2018 11:41
--- NOTE | 2018-10-05 14:14 | PN ---
Date/Time of Note Date/Time of Note DATE: 10/05/18 TIME: 14:13 Assessment/Plan Lines/Catheters IV Catheter Type (from [facility]rs[facility]): Peripheral IV Assessment/Plan Assessment/Plan Status post lower extremity intervention patient now with abdominal wall hematoma which is stable No signs of active bleeding Hemoglobin stable after transfusion Continue supportive care ambulation discharge planning Subjective 24 Hr Interval Summary Constitutional: improved Pain Control: mild Exam/Review of Systems Vital Signs Vitals Vital Signs Date Temp Pulse Resp B/P (MAP) Pulse Ox O2 O2 Flow FiO2 Time Delivery Rate 10/05/18 98.1 71 18 128/60 93 Room Air 11:15 (82) Intake and Output 10/04/18 10/04/18 10/05/18 1515:00 23:00 07:00 IntakeIntake Total 200 ml 440 ml 400 ml BalanceBalance 200 ml 440 ml 400 ml Exam Eyes: nl conjunctiva, EOMI, nl lids, nl sclera ENMT: nl external ears & nose, nl lips & teeth, nl nasal mucosa & septum, mucosa pink and moist Neck: supple, non-tender Respiratory: clear to auscultation, normal air movement Cardiovascular: regular rate and rhythm, nl pulses Gastrointestinal: soft, nl liver, spleen, non-tender Results Result Diagram: 10/05/18 0544 10/05/18 0544 KAREN COYLE MD Oct 05, 2018 14:14
[2018-10-05 15:15] VITALS: BP 122/57; PULSE 74; RESP 18
--- NOTE | 2018-10-05 18:01 | PDOCDIS ---
Discharge Instructions CONDITION [id number] Patient Condition: [id number] Stable HOME CARE INSTRUCTIONS: [id number] Diet Instructions: [id number] Low Fat /Cholesterol ACTIVITY: [id number] Activity Restrictions: [id number] Slowly Increase Activity Rest between Activity Avoid heavy lifting FOLLOW UP/APPOINTMENTS Follow-up Plan Please take your medications as prescribed, see your doctor in clinic in the next 1 week. If you notice any further bleeding or abdominal pain or further bruising, or discharge from the skin area, please call 911, go to your primary care doctor's office, call your primary care doctor, or go to the ER. DONNY LAY Oct 05, 2018 18:01
--- NOTE | 2018-10-05 18:03 | PDOCDIS ---
Discharge Instructions CONDITION [id number] Patient Condition: [id number] Stable HOME CARE INSTRUCTIONS: [id number] Diet Instructions: [id number] Low Fat /Cholesterol ACTIVITY: [id number] Activity Restrictions: [id number] Slowly Increase Activity Rest between Activity Avoid heavy lifting FOLLOW UP/APPOINTMENTS Follow-up Plan Please take your medications as prescribed, see your doctor in clinic in the next 1 week. If you notice any further bleeding or abdominal pain or further bruising, or discharge from the skin area, please call 911, go to your primary care doctor's office, call your primary care doctor, or go to the ER. Please avoid taking aspirin, Advil, or Aleve, or ibuprofen at the present time given your bruising and hematoma which is improving overall. DONNY LAY Oct 05, 2018 18:03
--- NOTE | 2018-10-05 18:07 | DS ---
Date/Time of Note Date/Time of Note DATE: 10/05/18 TIME: 18:04 Discharge Summary Admission/Discharge Info Admit Date/Time Oct 03, 2018 at 20:17 Discharge Date/Time Discharge Diagnosis 1. Abdominal wall hematoma/ecchymosis: Slowly improving, patient status post angioplasty with revascularization recently, and looks like a few days ago September 30, [address] [facility]. Apparently at that time she was also given heparin. 2. Anemia: Secondary to blood loss, again status post blood transfusion this admission with improvement in hemoglobin 3. Right lower extremity ulcer -secondary to peripheral vascular disease-Status post revascularization recently prior to this admission. 4. Hypertension Procedures Abdominal angiography: IMPRESSION: 1. 3.2 x 12.5 cm hematoma in the left lower quadrant abdominal wall without active contrast extravasation. 2. Small perivascular hematomas overlying the proximal right superficial femoral artery and the left common femoral artery without active contrast extravasation and without pseudoaneurysm are likely from recent vascular access. Negative for luminal narrowing. 3. Extensive atherosclerosis of the aorta, branch vessels and lower extremity arteries including the calf arteries. Aorta and branch vessels are patent without significant narrowing. Negative for aneurysm. 4. Right lower extremity: Negative for significant stenosis of the major arteries of the right lower extremity from the common iliac artery to the popliteal artery. The dominant runoff vessel to the mid calf is the peroneal artery. Distal calf, ankle and foot are excluded from the field of view. 5. Left lower extremity: Negative for significant stenosis of the major arteries of the left lower extremity from the common iliac artery to the popliteal artery. The dominant runoff vessel to the mid calf is the posterior tibial artery. Distal calf, ankle and foot are excluded from the field of view. 6. Small scarred right kidney. Left kidney is normal size. Negative for hydronephrosis. 7. Cholelithiasis. Gallbladder is moderately distended without definite evidence of acute cholecystitis. Evaluation is limited due to motion artifact. 8. Generalized edema with body wall edema and small volume low attenuation free pelvic fluid. 9. Right greater than left bilateral fat containing lumbar hernias and fat containing umbilical hernia. 10. Soft tissue ulcer in the right lower extremity over the mid tibia without evidence of osteomyelitis where imaged. There are adjacent varicose veins and th e patency of the veins cannot be evaluated due to the phase of contrast injection. Hospital Course Patient was admitted and the results of the abdominal angiography were reviewed with the vascular surgery team. Patient was monitored for pain control and vital signs were stable. She was found to have some anemia and was given blood transfusion. Afterwards the CBC was checked and hemoglobin remained stable. Patient had no significant bleeding from above or below, or from the ecchymosis site. Her pain was well controlled with appropriate pain control medications. She was back at her baseline status, able to ambulate with assistance, tolerated diet. After getting clearance from the showroom consultant team, patient will be discharged home today improved condition with strict return precautions. She has been told to avoid aspirin, NSAIDs including Aleve, ibuprofen. See below for full list of discharge medications. Home Meds No Active Prescriptions or Reported Meds Follow-up Plan Please take your medications as prescribed, see your doctor in clinic in the next 1 week. If you notice any further bleeding or abdominal pain or further bruising, or discharge from the skin area, please call 911, go to your primary care doctor's office, call your primary care doctor, or go to the ER. Please avoid taking aspirin, Advil, or Aleve, or ibuprofen at the present time given your bruising and hematoma which is improving overall. Primary Care Provider Not On Staff Doctor Pending Labs Laboratory Tests Test 10/04/18 18:12 10/05/18 05:44 10/05/18 15:58 Hemoglobin 8.3 8.8 8.8 g/dl (12.0-16.0) g/dl (12.0-16.0) g/dl (12.0-16.0) Hematocrit 26.5 % (37.0-47.0) 28.3 % (37.0-47.0) 27.9 % (37.0-47.0) White Blood Count 5.5 10^3/ul (4.8-10.8) Red Blood Count 3.23 10^6/ul (4.20-5.40 ) Mean Corpuscular 87.6 Volume fl (82.0-101.0) Mean Corpuscular 27.2 Hemoglobin pg (29.0-33.0) Mean Corpuscular 31.1 Hemoglobin Concent g/dl (32.0-37.0) Red Cell 16.1 % (11.5-14.5) Distribution Width Platelet Count 281 10^3/UL (140-415) Mean Platelet 9.3 fl (7.4-10.4) Volume Immature 0.400 Granulocytes % % (0.001-0.429) Neutrophils % 53.4 % (39.0-77.0) Lymphocytes % 33.3 % (15.0-51.0) Monocytes % 8.4 % (0.0-11.0) Eosinophils % 3.8 % (0.0-7.0) Basophils % 0.7 % (0.0-2.0) Nucleated Red Blood 0.0 Cells % /100WBC (0.0-0.0) Immature 0.020 Granulocytes # 10^3/ul (0.0-0.031 ) Neutrophils # 2.9 10^3/ul (1.6-7.5) Lymphocytes # 1.8 10^3/ul (0.8-2.9) Monocytes # 0.5 10^3/ul (0.3-0.9) Eosinophils # 0.2 10^3/ul (0.0-0.5) Basophils # 0.0 10^3/ul (0.0-0.1) Nucleated Red Blood 0.0 Cells # 10^3/ul (0.0-0.0) Sodium Level 139 mmol/L (135-144) Potassium Level 4.1 mmol/L (3.5-5.1) Chloride Level 106 mmol/L (97-110) Carbon Dioxide 27 mmol/L (21-31) Level Anion Gap 6 (5-13) Blood Urea Nitrogen 9 mg/dl (7-20) Creatinine 0.70 mg/dl (0.44-1.00) Est Glomerular mL/min (>60) Filtrat Rate mL/min Glucose Level 109 mg/dl (70-220) Calcium Level 8.4 mg/dl (8.4-10.2) Phosphorus Level 4.0 mg/dl (2.5-4.9) Magnesium Level 1.9 mg/dl (1.7-2.5) DONNY LAY Oct 05, 2018 18:07
== END 2018-10-05 19:02 | disposition home or self-care (01) | DRG 920 ==
LOC: E/R 14:32 → 6WM 20:17
PROVIDERS: ADMIT Internal Medicine; ATTEND Hospitalist
PROC: 30233N1 Transfusion of Nonautologous Red Blood Cells into Peripheral Vein, Percutaneous Approach (ICD-10-PCS; principal; 2018-10-04)
DX: I97.638 Postprocedural hematoma of a circulatory system organ or structure following other circulatory system procedure (principal); L97.919 Non-pressure chronic ulcer of unspecified part of right lower leg with unspecified severity; D50.0 Iron deficiency anemia secondary to blood loss (chronic); I10 Essential (primary) hypertension; I70.239 Atherosclerosis of native arteries of right leg with ulceration of unspecified site
CPT/HCPCS: 36415; 36430; 75635; 80048; 80053; 81003; 83735; 84100; 85014; 85018; 85025; 85610; 85730; 86850; 86900; 86901; 86920; 87081; 93005; C9113; J2270; J7040; J7042; P9016; Q9967